=== PATIENT | female | born 1960 | race Caucasian/White ===

== ENCOUNTER 2023-04-15 09:30 | Emergency (ER) | payer BC, SELFPAY ==
[2023-04-15 09:43] VITALS: BP 158/90; PULSE 87; RESP 22; TEMP 36.2; O2SAT 99
--- NOTE | 2023-04-15 10:58 | ED.URI ---
HPI - URI/Sore Throat General Chief Complaint: Upper Respiratory Infection Stated Complaint: cough/sob/nausea/ear/headache Time Seen by Provider: 04/15/23 10:50 Source: patient, RN notes reviewed and old records reviewed Mode of arrival: ambulatory Limitations: no limitations History of Present Illness HPI Narrative: 62 year old female who presents to [facility] with complaints of 8 days history of sinus congestion with drainage, facial pressure and some right ear discomfort, with cough. Patient reports no sore throat or any fevers. Patient reports that she has been taking Mucinex, DayQuil,NyQuil and some Tylenol for her symptoms. She has done 2 home COVID tests which have been negative. Reports that cough is worse at night when she lays spine and feels some some shortness of breath with cough at times and cough is now productive. MD elicited complaint: cough, rhinorrhea, nasal congestion, sinus pain and other (right ear pain) Onset (ago): day(s) (8) Pain scale (0-10): 5 Able to tolerate fluids by mouth: Yes Treatments prior to arrival: acetaminophen and other (Mucinex,DayQuil and NyQuil) Related Data Home Medications Medication Instructions Recorded Confirmed amlodipine 5 mg tablet mg 04/15/23 apixaban 5 mg tablet (Eliquis) mg 04/15/23 atorvastatin 40 mg tablet mg 04/15/23 dulaglutide 0.75 mg/0.5 mL mg subcut 04/15/23 subcutaneous [facility] ergocalciferol (vitamin D2) 1,250 04/15/23 mcg (50,000 unit) capsule glimepiride 4 mg tablet mg 04/15/23 lisinopril 20 mg tablet mg 04/15/23 metformin 500 mg tablet mg 04/15/23 Allergies Allergy/AdvReac Type Severity Reaction Status Date / Time No Known Drug Allergies Allergy Unknown Unknown Verified 03/04/19 13:10 Review of Systems Review of Systems: CONSTITUTIONAL: Reports malaise, no chills, sweats, or fever. EYES: Denies visual changes, redness, or discharge. ENT: Reports rhinorrhea, congestion, sinus pain,right otalgia and no sore throat. CARDIOVASCULAR: Denies chest pain, palpitations, or edema. RESPIRATORY: Reports cough.? Reports some dyspnea with cough GASTROINTESTINAL: Denies abdominal pain, nausea, vomiting, diarrhea SKIN: Denies rash or itching. MUSCULOSKELETAL: Denies myalgia. NEUROLOGIC: Denies headache. All systems reviewed & are unremarkable except as noted in HPI and below PMFSH Past Medical History Medical History (Updated 04/16/23 @ 14:12 by Eva Werner NP) Atrial fibrillation Bronchitis Diabetes Elevated cholesterol Hypertension Wrist fracture Family History Family History (Updated 04/16/23 @ 13:58 by Eva Werner NP) Sibling Breast cancer Mother Hypertension Grandparent Cerebrovascular accident Heart disease Social History Social History (Updated 04/16/23 @ 13:55 by Eva Werner NP) Smoking status: Never smoker Alcohol intake: current Alcohol use details: rare social Substance use type: does not use Comments At time of signature, agree with nursing past medical, surgical, social and family history. There is no relevant family history pertinent to the presenting complaint Exam Narrative: GENERAL: Well-appearing, well-nourished, and in no acute distress. HEAD: Normocephalic EYES: PERRLA, conjunctivae clear ENT: Nares clear, turbinates edematous and erythematous, clear to light yellow discharge, sinus pressure. Mucous membranes moist. TM pearly jernigan with dull light reflex bilaterally; no tragal tenderness. Oropharynx erythematous without lesions. Tonsils not enlarged and without exudate, no drooling, no hoarseness, no trismus, uvula midline. NECK: Supple. No lymphadenopathy CHEST: Clear to auscultation, breath sounds equal. No wheezing, rhonchi, rales, or stridor. No respiratory distress, speaks in full sentences.cough harsh SAO2 99% on room air HEART: Regular rate and rhythm. No murmur heard. SKIN: Warm, dry, no rash. NEURO: Alert and lyndsay
== END 2023-04-15 11:22 | disposition home or self-care (01) ==
PROVIDERS: Emergency Provider Registered Nurse; PCP Nurse Practitioner Family
DX: J32.9 Chronic sinusitis, unspecified (principal); R05.9 Cough, unspecified; I48.91 Unspecified atrial fibrillation; E11.9 Type 2 diabetes mellitus without complications; E78.00 Pure hypercholesterolemia, unspecified; I10 Essential (primary) hypertension
CPT/HCPCS: 99213; G0463